=== PATIENT | female | born 1995 | race Caucasian/White ===

== ENCOUNTER → 2017-01-13 | Outpatient (REF) | payer BC ==
[2017-01-13 16:05] LABS: BASO % 0.5 % (0.0-1.0); EOS # 0.1 K/mm3 (0.0-0.50); EOS % 1.6 % (0.0-3.0); LARGE UNSTAINED CELL # 0.1 K/mm3 (0.0-0.4); LYMPH # 1.6 K/mm3 (1.5-6.5); LYMPH % 18.2 % (24.0-44.0); MEAN CORPUSCULAR HEMOGLOBIN 30.1 pg (27.0-33.0); MEAN CORPUSCULAR HGB CONC 33.3 g/dl (32.0-36.5); MEAN CORPUSCULAR VOLUME 90.5 fl (80.0-96.0); MONO # 0.4 K/mm3 (0.0-0.8); MONO % 4.4 % (0.0-5.0); NEUTROPHILS # 6.2 K/mm3 (1.8-7.7); NEUTROPHILS % 74.2 % (36.0-66.0); PLATELET COUNT, AUTOMATED 212 k/mm3 (150-450); RED CELL DISTRIBUTION WIDTH 12.9 % (11.5-14.5); WHITE BLOOD COUNT 8.4 K/mm3 (4.0-10.0)
[2017-01-13 16:17] LABS: ALBUMIN 3.7 GM/DL (3.2-5.2); ALBUMIN/GLOBULIN RATIO 1.09 (1.00-1.93); ALKALINE PHOSPHATASE 62 U/L (45-117); ALT/SGPT 16 U/L (12-78); ANION GAP 10 MEQ/L (8-16); AST/SGOT 29 U/L (15-37); BILIRUBIN,TOTAL 0.4 MG/DL (0.2-1.0); BLOOD UREA NITROGEN 11 MG/DL (7-18); CALCIUM LEVEL 8.7 MG/DL (8.5-10.1); CARBON DIOXIDE LEVEL 29 MEQ/L (21-32); CHLORIDE LEVEL 104 MEQ/L (98-107); CHOLESTEROL LEVEL 155 MG/DL (<200); CREATININE FOR GFR 0.82 MG/DL (0.55-1.02); GLOMERULAR FILTRATION RATE > 60.0 (>60); GLUCOSE, FASTING 84 MG/DL (70-105); POTASSIUM SERUM 4.4 MEQ/L (3.5-5.1); SODIUM LEVEL 143 MEQ/L (136-145); TOTAL PROTEIN 7.1 GM/DL (6.4-8.2); TRIGLYCERIDES LEVEL 116 MG/DL (<150)
== END ==
LOC: M LABDRAW1 15:25
PROVIDERS: ATTEND Pediatrics
DX: Z00.00 Encounter for general adult medical examination without abnormal findings (principal)

== ENCOUNTER → 2018-05-28 | Outpatient (CLI) | payer BC ==
[2018-05-30 11:01] LABS: RUBELLA IgG QUALITATIVE IMMUNE (IMMUNE)
[2018-06-01 00:12] LABS: HERPES ZOSTER, VARICELLA IgM <0.91 index (0.00-0.90); MUMPS VIRUS IgG ANTIBODY 90.2 AU/mL (Immune >10.9)
[2018-06-01 00:12] LABS: HERPES ZOSTER, VARICELLA IgG 944 index (Immune >165)
== END ==
LOC: M WUC 17:48
DX: Z02.0 Encounter for examination for admission to educational institution (principal)
CPT/HCPCS: 86762

== ENCOUNTER → 2018-05-30 | Outpatient (REF) | payer BC ==
[2018-06-09 06:47] LABS: SUMMARY SEE SEPARATE REPORT
== END ==
LOC: M LAB REF 19:27
DX: Z02.0 Encounter for examination for admission to educational institution (principal)

== ENCOUNTER → 2019-04-10 | Outpatient (REF) | payer BC ==
[2019-04-12 10:11] LABS: ENDOMYSIAL ABY IgA Negative (Negative); TISSUE TRANSGLUTAMINASE IgA <2 U/mL (0-3)
== END ==
LOC: M LAB REF 13:08
PROVIDERS: ATTEND Nurse Practitioner Family
DX: R19.7 Diarrhea, unspecified (principal); L30.9 Dermatitis, unspecified

== ENCOUNTER 2019-11-06 13:29 | Day surgery (SDC) | payer BC ==
[~2019-11-06] VITALS: Ht 172.7 cm; Wt 72.3 kg
[~2019-11-06 13:29] MED LIST: APRITAB PO; CVS1CAP2 PO; CYAN500T8 PO; LIDOCAINE 1% MDV 20ML VIAL SQ PRN; LIDOCAINE 2% INJ 100 MG/5 ML SDV (FOR ANES.) As Ordered ONE; LR 1,000 ML IV ONE; ONDANSETRON 4MG/2ML VIAL (J2405) As Ordered ONE; PROPOFOL 200 MG/20 ML VIAL As Ordered ONE; ROCURONIUM BROMIDE 50 MG/5 ML VIAL As Ordered ONE; SM HTAB3 PO; VITA-199 PO; dexameTHASONE 4 MG/ML 1ML VIAL (J1100) As Ordered ONE
[2019-11-06] MEDS ORDERED: ROPIvacaine 0.5% 30 ML INJECTION (J2795 PER 1MG) ONE (13:30)
[2019-11-06] MEDS ORDERED: LIDOCAINE 1% MDV 20ML VIAL ONE (13:30)
[2019-11-06] MEDS ORDERED: dexameTHASONE 10 MG/1 ML VIAL PRES.FREE (J1100) ONE (13:30)
[2019-11-06] MEDS ORDERED: fentaNYL 250 MCG/5 ML INJECTION (J3010) As Ordered ONE (13:33)
[2019-11-06] MEDS ORDERED: ceFAZolin 2 GM/D5W 50 ML IV BAG (J0690 PER 500MG) As Ordered ONE (13:49)
[2019-11-06] MEDS ORDERED: LIDOCAINE 1% MDV 20ML VIAL As Ordered ONE (13:50)
[2019-11-06] MEDS ORDERED: EPINEPHrine 1MG/ML INJ 30ML MD-VIAL As Ordered ONE (13:50)
[2019-11-06] MEDS ORDERED: ceFAZolin SOD 2 GM in IV 1 EA IV ONE (14:00)
[2019-11-06] MEDS ORDERED: MIDAZOLAM INJ 2 MG/2 ML VIAL (J2250) As Ordered ONE (14:44)
[2019-11-06] MEDS ORDERED: fentaNYL 100 MCG/2 ML INJECTION (J3010) As Ordered ONE (14:44)
[2019-11-06] MEDS ORDERED: MIDAZOLAM INJ 2 MG/2 ML VIAL (J2250) IV ONE (15:00)
[2019-11-06] MEDS ORDERED: fentaNYL 100 MCG/2 ML INJECTION (J3010) IV ONE (15:00)
[2019-11-06] MEDS ORDERED: ACETAMINOPHEN 1000MG 100ML IV BTL (OFIRMEV) (J0131 PER 10MG) As Ordered ONE (15:26)
[2019-11-06] MEDS ORDERED: SUGAMMADEX SODIUM 500 MG/5 ML VIAL (BRIDION) As Ordered ONE (15:54)
[2019-11-06] MEDS ORDERED: fentaNYL 100 MCG/2 ML INJECTION (J3010) IV PRN (17:30)
[2019-11-06] MEDS ORDERED: HYDROMORPHONE HCL 0.5 MG/ 0.5 ML SYRINGE (J1170 PER 1) IV PRN (17:30)
[2019-11-06] MEDS ORDERED: LR 1,000 ML IV SCH ×2 (17:30→18:31)
[2019-11-06] MEDS ORDERED: ONDANSETRON 4MG/2ML VIAL (J2405) IV PRN (17:30)
[2019-11-06] MEDS ORDERED: PERCOCET 5MG/325MG TAB PO PRN (17:30)
[2019-11-06 19:12] VITALS: BP 124/68
--- NOTE | 2019-11-08 14:17 | RO ---
DATE OF SURGERY: 11/06/2019 PREOPERATIVE DIAGNOSIS: 1. Right shoulder anterior instability. POSTOPERATIVE DIAGNOSIS 1. Right shoulder anterior instability. PROCEDURE: 1. Right shoulder examination under anesthesia. 2. Right shoulder arthroscopy with anterior labral repair. SURGEON: Rohit Medina MD PHARMACIST HELPER: ELOISE Damon ANESTHESIA: General with preoperative nerve block. IV FLUIDS: Lactated Ringer's. ESTIMATE BLOOD LOSS: 5 mL. IMPLANTS: Arthrex 3 mm BioComposite SutureTak times one and Arthrex 2.9 mm PushLock anchor times three with labral tape. CLOSURE: Nylon. PROCEDURE: Patient identified in the preoperative holding area, the right shoulder marked by myself. She had a negative jerk test. She then had a preoperative nerve block from anesthesia. She was brought to the operating room, placed supine on a well-padded OR table with a beanbag. General anesthesia was induced. Examination under anesthesia revealed 180 degrees of forward flexion in the right shoulder, 90 of external rotation with arm at her side, a grade 1+ posterior load and shift, a grade 2+ anterior load and shift. Examination of the left shoulder revealed a grade 1+ anterior load and shift in a grade 1+ posterior load and shift. She was then placed into the left side down lateral decubitus position with an axillary roll and all bony prominences were well padded. She had bilateral Venodyne boots for DVT prophylaxis. The right arm was placed into the Arthrex STaR Sleeve lateral decubitus traction nichole with 10 pounds of traction. The right shoulder was then prepped and draped in a normal sterile fashion with Chloraprep. She received appropriate IV antibiotics within 1 hour of incision. Time out performed per hospital protocol. Sherri Baeza was present for the entire procedure and participated in all essential portions of the procedure. This included patient positioning and draping, holding the arthroscope and most importantly, providing axial traction to the arm during suture passage and knot tying and anchor placement. She also assisted with suture retrieval and performed the wound closure, applied the dressing and sling. The right shoulder was insufflated with lactated Ringer's. A standard posterior viewing portal made with an 11 blade. 30 degree arthroscope was introduced into the joint. 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 There was no tearing of the rotator cuff. The subscapularis appeared pristine. The long head of biceps was unremarkable. The superior labrum was intact. There was a modified Chrissy complex with thickened anterior superior labrum, not adherent to the glenoid. There was a clear tear of the anterior and anterior inferior labrum with absent bumper. There was a positive drive-through sign. Labrum at the 6 o'clock position was intact and then extending posteriorly there was a fissure at the chondrolabral junction. The humeral head was noted to be subluxated, anterior and inferior. I then placed two purple Arthrex cannulas, one just off the subscapularis, and the other high in the rotator interval just anterior to the biceps. On probing with a switching stick there was a clear tear of the anterior inferior labrum. It was clear that I would have to place a trans subscapularis drill hole in order to get the appropriate angle for the low anchor. I used the hooked radiofrequency cautery to develop the plane between the anterior labrum and glenoid. Labral elevators were then used to subperiosteally elevate the labrum and capsule off the anterior glenoid neck in a subperiosteal fashion. Once the tissue was sufficiently mobilized I used the rasp to create a bleeding surface on the glenoid neck. The drill guide for a 3 mm SutureTak was then used to lorenzana the subscapularis and this gave a much better angle for drilling the lowest anchor. I then used the appropriate drill bit and then placed a 3 mm Arthrex SutureTak anchor at the 5 o'clock position. The TigerWire sutures were then passed through the anterior inferior labrum, grasping the anterior band of the inferior glenohumeral ligament. Those sutures were passed in a horizontal mattress fashion. My creative assistant then applied posterior lever push to the proximal humerus and arthroscopic knots were tied by hand using alternating half hitches. This nicely restored the anterior inferior bumper. Sutures were cut with a rubber goods cutter finisher. The FiberWire suture was unloaded from the anchor. I then placed a total of three knotless PushLock anchors. I used a SutureLasso to shuttle labral tape through capsule and labrum and this was performed in a inferior to superior shift. Those PushLock anchors were placed at the 4 o'clock, 3 o'clock and 2 o'clock positions. I made sure that the most superior anchor was not closing down the modified [place] complex to avoid over tightening her. At the completion of the labral repair, there was a nice secure repair on probing. The humeral head was now centrally located on the glenoid. The arthroscope was placed into the anterior superior portal and the posterior labrum was inspected. No indication for repair. The shoulder was irrigated and drained. Portals closed with nylon suture. Bulky sterile dressing applied. She was carefully placed into her sling and then extubated and transferred to the postanesthesia care unit (PACU) in stable condition.
== END 2019-11-06 19:20 | disposition home or self-care (01) ==
LOC: M SDC 13:29
PROVIDERS: ATTEND Orthopaedic Surgery
DX: M25.311 Other instability, right shoulder (principal); S43.491A Other sprain of right shoulder joint, initial encounter; S43.031A Inferior subluxation of right humerus, initial encounter; X58.XXXA Exposure to other specified factors, initial encounter; Y93.9 Activity, unspecified; Y92.9 Unspecified place or not applicable; Y99.9 Unspecified external cause status; Z79.82 Long term (current) use of aspirin
CPT/HCPCS: 29806; 81025; C1713; J0131; J0690; J1100; J2250; J2405; J2795; J3010